=== PATIENT | male | born 1990 | race Two or more races ===

== ENCOUNTER 2017-09-06 08:56 | Emergency (ER) | payer SELFPAY ==
--- NOTE | 2017-09-06 09:26 | EDM.PDOC ---
ED HPI GENERAL MEDICAL PROBLEM - General Chief Complaint: Lower Extremity Injury/Pain Stated Complaint: LEFT ANKLE PAIN Time Seen by Provider: 09/06/17 09:07 - History of Present Illness INITIAL COMMENTS - FREE TEXT/NARRATIVE: HISTORY AND PHYSICAL: History of present illness: The patient is a 27-year-old male with no stated medical problems who presents with complaints of numbness and decreased sensation of his left leg from his knee to his toes. He says his been ongoing constantly for the last 2 months. He says that it doesn't involve his thigh or anything above his knee. He says he has intermittent weakness and inability to move his toes but he has not had any trauma or falls. He denies any back history but does state that he had a seizure 4 months ago and was seen at a emergency department and then transferred to [facility] where he was evaluated by neurology and had an MRI and EEG all of which were negative. He is currently on no medications for seizures. He says that he did not have these symptoms at that time. He said initially the symptoms started as he does a lot of kneeling for work and he was kneeling for prolonged period of time, 20-30 minutes, and then the symptoms of the numbness started and they have been persistent ever since. He says he doesn' t have any pain in the leg except intermittently he'll have a spasm but overall he has no pain in the leg. He has no systemic complaints of fever chills chest pain shortness of breath no back or neck pain no headache. He says that when he has the weakness and inability to move his toes and foot feels like his gait is unsteady but he does not fall. When I specifically asked the patient about his gait and the inability to move his foot upwards when he walks he says that has been going on for 2 months constantly. He says that the toe movement is intermittent but the inability to pull his foot upwards been constant altering his gait for 2 months The patient has no bowel or bladder disturbances. Review of systems: As per history of present illness and below otherwise all systems reviewed and negative. Past medical history: As per history of present illness and as reviewed below otherwise noncontributory. Surgical history: As per history of present illness and as reviewed below otherwise noncontributory. Social history: No reported history of drug or alcohol abuse. Family history: As per history of present illness and as reviewed below otherwise noncontributory. Physical exam: Gen.: Well-developed well-nourished man is nontoxic and speaking clearly and easily in the ED. Vital signs of been reviewed by me HEENT: Atraumatic, normocephalic, , negative for conjunctival pallor or scleral icterus, mucous membranes moist, throat clear, neck supple, nontender, trachea midline. Lungs: Clear to auscultation, breath sounds equal bilaterally, chest nontender. Heart: S1S2, regular, negative for clicks, rubs, or JVD. Abdomen: Soft, nondistended, nontender. Negative for masses or hepatosplenomegaly. Negative for costovertebral tenderness. Pelvis: Stable nontender. Genitourinary: Deferred. Rectal: Deferred. Extremities: Atraumatic, negative for cords or calf pain. Neurovascular unremarkable. There is full range of motion of all extremities including the left leg. Please see neuro exam Neuro: Awake, alert, oriented. Cranial nerves II through XII unremarkable. Cerebellum unremarkable. Motor and sensory unremarkable throughout with the exception of the left foot. The patient is able to plantar flex the left foot but not able to dorsiflex the foot and he states that the sensation to simple touch and pressure and temperature is diminished from the knee down to the foot in a circumferential way. Sensation and motor is intact from the knee upwards. When I get him up to walk him he clearly has exaggerated movement on the left leg and has to lift the leg on the left higher in order to prevent a foot drop on the left. When asked the patient specifically about this exaggerated movement that he makes in order to ambulate he says this is been going on for 2 months. He says he cannot lift the foot In order to walk more smoothly and normally. He doesn't move the toes voluntarily but when I do a Babinski his toes do move. Diagnostics: MRI of the lumbar spine Therapeutics: 0928: I discussed this case with Dr. De La Paz and unfortunately each time we go in the room and discussed this with the patient he seems to vacillate on his history. On my evaluation I repeatedly asked him about the timeframe of his foot drop and inability to walk normally and he says it has been constant for 2 months. He tells nursing that it is coming and going. With the insecurity of the history Dr. De La Paz and I will perform an MRI of the lumbar spine and she will follow him up in the clinic if testing is negative. 1220: MRI results were discussed with Dr. De La Paz feels that she does not want steroids to be given and she wants the patient is to follow-up in the clinic so she can reevaluate him and treat him for a neuropathy. I discussed all testing results with patient and need for follow-up in the clinic tomorrow and that he should return if the symptoms evolve or develop. Please note that nursing has made a scheduled appointment in our clinic for follow-up for this patient tomorrow September 07 at 3:[address] Narvaez. Impression: Left lower leg and foot paresthesia, foot drop, subacute/chronic etiology unclear Definitive disposition and diagnosis as appropriate pending reevaluation and review of above. Left booth Pain Score (Numeric/FACES): 10 - Related Data Allergies Allergy/AdvReac Type Severity Reaction Status Date / Time No Known Allergies Allergy Verified 09/06/17 09:10 Home Meds: Home Meds . [No Known Home Meds] 08/31/14 [History] Past Medical History Neurological History: Reports: Seizure Social & Family History - Family History Family Medical History: Noncontributory - Tobacco Use Smoking Status *Q: Current Every Day Smoker Years of Tobacco use: 4 Packs/Tins Daily: 0.3 - Caffeine Use Caffeine Use: Reports: None - Alcohol Use Days Per Week of Alcohol Use: 0 - Recreational Drug Use Recreational Drug Use: No Review of Systems - Review of Systems Review Of Systems: ROS reveals no pertinent complaints other than HPI. ED EXAM, GENERAL - Physical Exam Exam: See Below (See dictation) Course - Vital Signs Last Recorded V/S: Last Vital Signs Temp 36.6 C 09/06/17 09:10 Pulse 82 09/06/17 09:10 Resp 16 09/06/17 09:10 BP 136/86 09/06/17 09:10 Pulse Ox 95 09/06/17 09:10 Departure - Departure Time of Disposition: 12:32 Disposition: Home, Self-Care 01 Condition: Good Clinical Impression: Paresthesia, Neuropathy, Foot drop, left - Discharge Information Referrals: PCP,None [Primary Care Provider] - Forms: ED Department Discharge Additional Instructions: The following information is given to patients seen in the emergency department who are being discharged to home. This information is to outline your options for follow-up care. We provide all patients seen in our emergency department with a follow-up referral. The need for follow-up, as well as the timing and circumstances, are variable depending upon the specifics of your emergency department visit. If you don't have a primary care physician on staff, we will provide you with a referral. We always advise you to contact your personal physician following an emergency department visit to inform them of the circumstance of the visit and for follow-up with them and/or the need for any referrals to a consulting specialist. The emergency department will also refer you to a specialist when appropriate. This referral assures that you have the opportunity for followup care with a specialist. All of these measure are taken in an effort to provide you with optimal care, which includes your followup. Under all circumstances we always encourage you to contact your private physician who remains a resource for coordinating your care. When calling for followup care, please make the office aware that this follow-up is from your recent emergency room visit. If for any reason you are refused follow-up, please contact the [facility] emergency department at and ask to speak to the emergency department charge nurse. [facility] Primary care- Internal Medicine and Family [address] [address] [facility] [address] [place] [address], [address] [place] [address] Please go to your appointment tomorrow September 07 in our clinic at 3:[address] Narvaez. Please arrive 10-15 minutes early to do paperwork and register. From that point they will refer you to Dr. De La Paz will see you and further treat you for this more chronic problem. Return to ER as needed and as discussed
--- NOTE | 2017-09-06 11:48 | MR ---
EXAMINATION: MRI lumbar spine HISTORY: Left foot drop COMPARISON: None TECHNIQUE: Multiplanar and multisequence imaging obtained of the lumbar spine without contrast. FINDINGS: The lumbar spinal alignment is normal. The vertebral body heights appear maintained. There is no abnormal bone marrow signal. The distal spinal cord appears normal and the conus terminates at L1-L2. The SI joints are symmetric. The visualized retroperitoneal structures appear normal. T12-L1: Unremarkable. L1-L2: Unremarkable. L2-L3: Unremarkable. L3-L4: Unremarkable. L4-L5: Minimal diffuse disc bulge without significant spinal canal or neural foraminal stenosis. L5-S1: Small diffuse disc bulge with an annular tear without significant spinal canal stenosis. Mild right and mild to moderate left neural foraminal stenosis. IMPRESSION: 1. Mild Multilevel degenerative disc disease noted most prominent at L5-S1 with individual details ab ove.
== END 2017-09-06 12:54 | disposition home or self-care (01) ==
LOC: MW.ED 08:56
DX: G62.9 Polyneuropathy, unspecified (principal); M21.372 Foot drop, left foot; F17.210 Nicotine dependence, cigarettes, uncomplicated
CPT/HCPCS: 72148; 72148-26; 99283; 99284-25

== ENCOUNTER 2022-02-07 18:38 | Emergency (ER) | payer SELFPAY ==
[2022-02-07] MEDS ORDERED: Sodium Chloride 0.9% 2.5 ML Syringe FLUSH PRN (19:09)
[2022-02-07] MEDS ORDERED: Sodium Chloride 0.9% 10 ML Syringe FLUSH PRN (19:09)
[2022-02-07 19:28] LABS: BLOOD UREA NITROGEN,BUN 10 mg/dL (7.0-18.0); CARBON DIOXIDE,CO2 22.1 mmol/L (21.0-32.0); CHLORIDE,CL 100 mmol/L (98-107); GLUCOSE RANDOM 103 mg/dL (74-106); POTASSIUM,K 3.4 mmol/L (3.5-5.1); SODIUM,NA 137 mmol/L (136-148)
[2022-02-07] MEDS ORDERED: Meclizine 25 MG Tab PO ONE (20:06)
== END 2022-02-07 21:45 | disposition home or self-care (01) ==
LOC: MW.ED 18:38
DX: R07.9 Chest pain, unspecified (principal); R00.2 Palpitations; F14.99 Cocaine use, unspecified with unspecified cocaine-induced disorder
CPT/HCPCS: 36415; 71045; 80053; 80305; 80307; 83735; 84484; 85025; 93005; 99285; A9270; J3490; 93010; 99284

== ENCOUNTER 2022-02-17 12:27 | Emergency (ER) | payer SELFPAY ==
[2022-02-17] MEDS ORDERED: Sodium Chloride 0.9% 10 ML Syringe FLUSH PRN (12:56)
[2022-02-17] MEDS ORDERED: Sodium Chloride 0.9% 2.5 ML Syringe FLUSH PRN (12:56)
[2022-02-17] MEDS ORDERED: LORazepam 2 MG/ML SDV IVPUSH ONE (15:01)
[2022-02-17 15:05] LABS: BLOOD UREA NITROGEN,BUN 17 mg/dL (7.0-18.0); CARBON DIOXIDE,CO2 25.4 mmol/L (21.0-32.0); CHLORIDE,CL 101 mmol/L (98-107); GLUCOSE RANDOM 98 mg/dL (74-106); LIPASE 99 U/L (73-393); POTASSIUM,K 4.2 mmol/L (3.5-5.1); SODIUM,NA 138 mmol/L (136-148)
[2022-02-17] MEDS ORDERED: Iopamidol 755 MG/ML 500 ML Multipack Bottle IVPUSH STA (16:46)
== END 2022-02-17 17:51 | disposition home or self-care (01) ==
LOC: MW.ED 12:27
DX: F45.8 Other somatoform disorders (principal)
CPT/HCPCS: 36415; 36600; 70450; 71045; 71275; 74176; 80053; 81001; 82803; 83690; 84484; 85025; 85379; 93005; 96374; 99284; J2060; J3490; Q9967

== ENCOUNTER 2022-02-21 20:52 | Emergency (ER) | payer SELFPAY ==
[2022-02-21 22:12] LABS: BLOOD UREA NITROGEN,BUN 9 mg/dL (7.0-18.0); CARBON DIOXIDE,CO2 22.5 mmol/L (21.0-32.0); CHLORIDE,CL 100 mmol/L (98-107); GLUCOSE RANDOM 116 mg/dL (74-106); SODIUM,NA 135 mmol/L (136-148)
== END 2022-02-21 23:35 | disposition home or self-care (01) ==
LOC: MW.ED 20:52
DX: R00.2 Palpitations (principal); R06.4 Hyperventilation; Z87.891 Personal history of nicotine dependence; Z79.899 Other long term (current) drug therapy
CPT/HCPCS: 36415; 80053; 80305-QW; 80307; 84484; 85025; 93005; 93010; 99284; 99285-25

== ENCOUNTER 2023-08-18 05:46 | Emergency (ER) | payer SELFPAY ==
[2023-08-18] MEDS ORDERED: Ketorolac 30 MG/ML SDV IVPUSH ONE (06:21)
[2023-08-18] MEDS ORDERED: Ondansetron 4 MG/2 ML SDV IVPUSH ONE (06:21)
[2023-08-18 06:31] LABS: BASOPHILS ABSOLUTE AUTO 0.05 K/uL (0.00-0.20); BASOPHILS PERCENT AUTO 0.6 % (0.0-1.0); EOSINOPHILS ABSOLUTE AUTO 0.13 K/uL (0.00-0.45); EOSINOPHILS PERCENT AUTO 1.6 % (0.0-6.0); HEMATOCRIT 48.1 % (42.0-52.0); HEMOGLOBIN 16.6 g/dL (14.0-18.0); IMMATURE GRAN ABSOLUTE AUTO 0.02 K/uL (0.00-0.05); IMMATURE GRAN PERCENT AUTO 0.2 % (0.0-0.4); LYMPHOCYTES ABSOLUTE AUTO 3.89 K/uL (1.00-4.80); MEAN CORPUSCULAR HEMOGLOBIN 29.2 pg (28.0-32.0); MEAN CORPUSCULAR HGB CONC 34.5 g/dL (32.0-36.0); MEAN CORPUSCULAR VOLUME 84.7 fL (83.0-99.0); MEAN PLATELET VOLUME 10.6 fL (9.4-12.4); MONOCYTES PERCENT AUTO 8.6 % (0.0-8.0); NEUTROPHILS ABSOLUTE AUTO 3.31 K/uL (1.80-7.70); PLATELET COUNT,PLT 355 K/uL (150-400); RED BLOOD CELL COUNT 5.68 M/uL (4.52-5.90)
[2023-08-18] MEDS ORDERED: Iopamidol 755 MG/ML 500 ML Multipack Bottle IVPUSH ONE (06:43)
[2023-08-18 06:44] LABS: A/G RATIO 0.9 (0.9-1.6); ALBUMIN 4.1 g/dL (3.4-5.0); BILIRUBIN TOTAL 0.7 mg/dL (0.2-1.0); CARBON DIOXIDE,CO2 26.1 mmol/L (21.0-32.0); EST CRCL DRUG DOSING (CG) 115.32 mL/min; POTASSIUM,K 4.6 mmol/L (3.5-5.1); PROTEIN TOTAL,TP 8.6 g/dL (6.4-8.2)
[2023-08-18 07:43] LABS: APPEARANCE,URINE CLEAR; BILIRUBIN,URINE NEGATIVE (NEGATIVE); COLOR,URINE YELLOW; GLUCOSE,URINE NEGATIVE (NEGATIVE); KETONES,URINE NEGATIVE (NEGATIVE); LEUKOCYTE ESTERASE,URINE NEGATIVE (NEGATIVE); NITRITE,URINE NEGATIVE (NEGATIVE); OCCULT BLOOD,URINE NEGATIVE (NEGATIVE); PROTEIN,URINE NEGATIVE (NEGATIVE); UROBILINOGEN,URINE 0.2 EU/dL (<2.0)
[2023-08-18 07:56] LABS: BACTERIA,URINE NOT SEEN (NEGATIVE); EPITHELIAL CELLS,URINE NOT SEEN (NONE-FEW); RBC,URINE NONE SEEN (0-2/HPF); WBC,URINE NONE SEEN (0-5/HPF)
== END 2023-08-18 08:41 | disposition home or self-care (01) ==
LOC: MW.ED 05:46
DX: K50.00 Crohn's disease of small intestine without complications (principal)
CPT/HCPCS: 36415; 74177; 80053; 81001; 83690; 85025; 96374; 96375; 99284; J1885; J2405; Q9967

== ENCOUNTER 2024-03-01 14:44 | Emergency (ER) | payer SELFPAY ==
[2024-03-01 15:22] LABS: BASOPHILS ABSOLUTE AUTO 0.07 K/uL (0.00-0.20); BASOPHILS PERCENT AUTO 0.8 % (0.0-1.0); EOSINOPHILS ABSOLUTE AUTO 0.11 K/uL (0.00-0.45); EOSINOPHILS PERCENT AUTO 1.2 % (0.0-6.0); HEMATOCRIT 52.4 % (42.0-52.0); HEMOGLOBIN 18.1 g/dL (14.0-18.0); IMMATURE GRAN ABSOLUTE AUTO 0.06 K/uL (0.00-0.05); IMMATURE GRAN PERCENT AUTO 0.7 % (0.0-0.4); LYMPHOCYTES ABSOLUTE AUTO 3.13 K/uL (1.00-4.80); LYMPHOCYTES PERCENT AUTO 33.9 % (24.0-44.0); MEAN CORPUSCULAR HGB CONC 34.5 g/dL (32.0-36.0); MEAN PLATELET VOLUME 10.1 fL (9.4-12.4); MONOCYTES ABSOLUTE AUTO 0.58 K/uL (0.00-0.80); MONOCYTES PERCENT AUTO 6.3 % (0.0-8.0); NEUTROPHILS ABSOLUTE AUTO 5.27 K/uL (1.80-7.70); NEUTROPHILS PERCENT AUTO 57.1 % (41.0-71.0); PLATELET COUNT,PLT 379 K/uL (150-400); RED BLOOD CELL COUNT 6.24 M/uL (4.52-5.90); WHITE BLOOD CELL COUNT,WBC 9.22 K/uL (3.9-11.3)
[2024-03-01] MEDS: Sodium Chloride 0.9% 500 ML IV SCH (15:26)
[2024-03-01] MEDS: Sodium Chloride 0.9% 2.5 ML Syringe FLUSH PRN (15:27)
[2024-03-01] MEDS: Sodium Chloride 0.9% 10 ML Syringe FLUSH PRN (15:27)
[2024-03-01 15:44] LABS: A/G RATIO 0.9 (0.9-1.6); ALBUMIN 4.6 g/dL (3.4-5.0); BILIRUBIN TOTAL 0.4 mg/dL (0.2-1.0); CALCIUM 9.9 mg/dL (8.5-10.1); CARBON DIOXIDE,CO2 24.8 mmol/L (21.0-32.0); CREATININE 1.1 mg/dL (0.8-1.3); EST CRCL DRUG DOSING (CG) 98.62 mL/min; MAGNESIUM 1.8 mg/dL (1.8-2.4); POTASSIUM,K 3.9 mmol/L (3.5-5.1); TSH ULTRASENSITIVE 1.64 uIU/mL (0.36-3.74)
== END 2024-03-01 15:25 | disposition home or self-care (01) ==
LOC: MW.ED 14:44
DX: R55 Syncope and collapse (principal); F17.210 Nicotine dependence, cigarettes, uncomplicated; Z75.8 Other problems related to medical facilities and other health care
CPT/HCPCS: 36415; 70450; 71045; 80053; 82947; 83735; 84443; 84484; 85025; 85379; 93005; 99284; J3490; J7040; 93010; 99282

== ENCOUNTER 2024-05-09 08:21 | Emergency (ER) | payer SELFPAY ==
[2024-05-09] MEDS: Sodium Chloride 0.9% 1,000 ML IV ONE (08:48)
[2024-05-09] MEDS: Sodium Chloride 0.9% 10 ML Syringe FLUSH PRN (08:48)
[2024-05-09] MEDS: Sodium Chloride 0.9% 2.5 ML Syringe FLUSH PRN (08:48)
[2024-05-09 08:49] LABS: BASOPHILS ABSOLUTE AUTO 0.04 K/uL (0.00-0.20); BASOPHILS PERCENT AUTO 0.5 % (0.0-1.0); EOSINOPHILS PERCENT AUTO 1.3 % (0.0-6.0); HEMATOCRIT 47.4 % (42.0-52.0); IMMATURE GRAN ABSOLUTE AUTO 0.03 K/uL (0.00-0.05); IMMATURE GRAN PERCENT AUTO 0.4 % (0.0-0.4); LYMPHOCYTES ABSOLUTE AUTO 2.94 K/uL (1.00-4.80); LYMPHOCYTES PERCENT AUTO 38.2 % (24.0-44.0); MEAN CORPUSCULAR HEMOGLOBIN 28.8 pg (28.0-32.0); MEAN CORPUSCULAR HGB CONC 33.8 g/dL (32.0-36.0); MEAN CORPUSCULAR VOLUME 85.3 fL (83.0-99.0); MEAN PLATELET VOLUME 10.1 fL (9.4-12.4); MONOCYTES ABSOLUTE AUTO 0.57 K/uL (0.00-0.80); MONOCYTES PERCENT AUTO 7.4 % (0.0-8.0); NEUTROPHILS ABSOLUTE AUTO 4.01 K/uL (1.80-7.70); NEUTROPHILS PERCENT AUTO 52.2 % (41.0-71.0); PLATELET COUNT,PLT 351 K/uL (150-400); RED BLOOD CELL COUNT 5.56 M/uL (4.52-5.90); WHITE BLOOD CELL COUNT,WBC 7.69 K/uL (3.9-11.3)
[2024-05-09] MEDS: Ketorolac 30 MG/ML SDV IVPUSH ONE (08:51)
[2024-05-09] MEDS: Ondansetron 4 MG/2 ML SDV IVPUSH ONE (08:51)
[2024-05-09 09:12] LABS: A/G RATIO 0.9 (0.9-1.6); BILIRUBIN TOTAL 0.6 mg/dL (0.2-1.0); CARBON DIOXIDE,CO2 22.9 mmol/L (21.0-32.0); EST CRCL DRUG DOSING (CG) 114.24 mL/min; POTASSIUM,K 3.6 mmol/L (3.5-5.1); PROTEIN TOTAL,TP 8.3 g/dL (6.4-8.2)
[2024-05-09 09:31] LABS: LACTIC ACID 1.6 mmol/L (0.4-2.0)
[2024-05-09] MEDS: Iopamidol 755 MG/ML 500 ML Multipack Bottle IVPUSH STA (09:44)
[2024-05-09 10:26] LABS: APPEARANCE,URINE CLEAR; BILIRUBIN,URINE NEGATIVE (NEGATIVE); COLOR,URINE YELLOW; GLUCOSE,URINE NEGATIVE (NEGATIVE); KETONES,URINE NEGATIVE (NEGATIVE); LEUKOCYTE ESTERASE,URINE NEGATIVE (NEGATIVE); NITRITE,URINE NEGATIVE (NEGATIVE); OCCULT BLOOD,URINE NEGATIVE (NEGATIVE); PROTEIN,URINE NEGATIVE (NEGATIVE); UROBILINOGEN,URINE 0.2 EU/dL (<2.0)
[2024-05-09 11:02] LABS: RBC,URINE 0-1 (0-2/HPF); WBC,URINE 0-1 (0-5/HPF)
[2024-05-09 11:03] LABS: BACTERIA,URINE NOT SEEN (NEGATIVE); EPITHELIAL CELLS,URINE NOT SEEN (NONE-FEW)
== END 2024-05-09 12:07 | disposition home or self-care (01) ==
LOC: MW.ED 08:21
DX: R10.31 Right lower quadrant pain (principal); F17.210 Nicotine dependence, cigarettes, uncomplicated; Z90.49 Acquired absence of other specified parts of digestive tract; Z75.8 Other problems related to medical facilities and other health care
CPT/HCPCS: 36415; 74177; 80053; 81001; 83605; 83690; 85025; 96361; 96374; 96375; 99284; J1885; J2405; J3490; J7030; Q9967